=== PATIENT | female | born 1980 | race Caucasian/White ===

== ENCOUNTER → 2019-11-18 09:05 | Outpatient (CLI) | payer BC, SELFPAY ==
--- NOTE | 2019-11-18 09:11 | US_ITS ---
PROCEDURE: US ABDOMEN LIMITED CLINICAL INDICATION: ABD PAIN COMPARISON: No exams were available for comparison FINDINGS: PANCREAS: Unremarkable. No obvious mass or abnormal fluid collection. No ductal dilatation LIVER: No focal liver lesions demonstrated. Homogeneous echogenicity. No intrahepatic biliary ductal dilatation evident. There is appropriate direction of blood flow within a non dilated portal vein. Mild fatty liver RIGHT KIDNEY: Unremarkable. Normal size and echogenicity. No hydronephrosis GALLBLADDER: There is a small area of increased echogenicity along the posterior aspect of the gallbladder wall at 6 x 4 mm. This does not shadow and is not gravity dependent consistent with a small gallbladder polyp. No shadowing stones gallbladder wall thickening pericholecystic fluid or biliary dilatation is evident. Common bile duct is 3 mm. IMPRESSION: 1. Gallbladder polyp. No stones apparent. 2. Fatty liver Dictated by: Victor M Arita MD 11/18/2019 17:28 Victor M Arita MD in [place] 11/18/2019 17:28
== END ==
LOC: RAD 09:06
PROVIDERS: PCP Nurse Practitioner; Visit Provider Nurse Practitioner
DX: R10.9 Unspecified abdominal pain (principal)
CPT/HCPCS: 76705

== ENCOUNTER → 2020-11-14 11:52 | Outpatient (CLI) | payer BC, SELFPAY ==
--- NOTE | 2020-11-14 12:01 | XR_ITS ---
PROCEDURE: XR KNEE RT 3V CLINICAL INDICATION: PAIN IN UNSPECIFIED KNEE COMPARISON: No exams were available for comparison FINDINGS: No fracture or dislocation. No lytic or blastic change. There is normal mineralization. There is slight decrease in the joint space medially with minimal spurring of the proximal tibia medially. Other findings:None. IMPRESSION: Minimal osteoarthritic change medial compartment Dictated by: Victor M Arita MD 11/14/2020 13:23 Victor M Arita MD in [place] 11/14/2020 13:24
--- NOTE | 2020-11-14 12:01 | XR_ITS ---
PROCEDURE: XR KNEE LT 3V CLINICAL INDICATION: PAIN IN UNSPECIFIED KNEE COMPARISON: No exams were available for comparison FINDINGS: No fracture or dislocation. No lytic or blastic change. There is normal mineralization. The joint spaces are well-preserved. No significant degenerative/arthritic changes. No erosive changes evident. Other findings:None. IMPRESSION: No acute findings. Dictated by: Victor M Arita MD 11/14/2020 13:22 Victor M Arita MD in [place] 11/14/2020 13:24
== END ==
PROVIDERS: PCP Nurse Practitioner; Visit Provider Nurse Practitioner
DX: M25.562 Pain in left knee (principal); M25.561 Pain in right knee
CPT/HCPCS: 73562